=== PATIENT | female | born 1980 | race Two or more races ===

== ENCOUNTER → 2023-02-18 | Day surgery (SDC) | payer OTHER ==
[~2023-02-18] MED LIST: ASPIRIN81 MG PO; BENICAR5 MG PO; FAMOTIDINE40 MG PO; FLONASE ALLERG9.9 ML INH; LACTATED RINGER'S 1,000 ML ONE; LIDOCAINE HCL 2% LOCAL INJ 5 ML SDV VIAL INJ ONE; LORATADINE10 MG PO; METOPROLOL SUCC50 MG PO; OZEMPIC1 MG/0.71; OZEMPIC2 MG/0.75; PROPOFOL IV EMULSION 10 MG/ML 20 ML VIAL ONE; VITAMIN D250 MCG; XYZAL5 MG
[2023-02-18 11:23] VITALS: BP 112/80; PULSE 80; RESP 18; O2SAT 99
== END | disposition home or self-care (01) ==
LOC: OR 09:58
PROVIDERS: ATTEND Internal Medicine Gastroenterology
DX: K62.5 Hemorrhage of anus and rectum (principal); K59.00 Constipation, unspecified; K64.8 Other hemorrhoids; K64.4 Residual hemorrhoidal skin tags; R74.8 Abnormal levels of other serum enzymes; G47.33 Obstructive sleep apnea (adult) (pediatric); E11.9 Type 2 diabetes mellitus without complications; I10 Essential (primary) hypertension; I25.2 Old myocardial infarction; Z01.810 Encounter for preprocedural cardiovascular examination; Z79.82 Long term (current) use of aspirin; Z79.85 Long-term (current) use of injectable non-insulin antidiabetic drugs; Z79.899 Other long term (current) drug therapy; Z68.36 Body mass index [BMI] 36.0-36.9, adult; Z80.0 Family history of malignant neoplasm of digestive organs
CPT/HCPCS: 36415; 45378; 81025; 82948; 93005; J2001; J2704; J7121